=== PATIENT | female | born 1955 | race Caucasian/White ===

== ENCOUNTER 2017-08-29 07:25 | Day surgery (SDC) ==
[2015-11-09 11:22] VITALS: BMI 29.7
[2017-08-29] MEDS: TETRACAINE 0.5% UNIT-DOSE OP PRN ×2 (07:59→08:48)
[2017-08-29] MEDS: BETADINE OPTH PREP OP PRN ×2 (08:00→08:48)
[2017-08-29] MEDS: CYCLOGYL 2% OPTH OP PRN ×3 (08:01→08:11)
[2017-08-29] MEDS ORDERED: BSS WITH EPINEPHRINE OP ONE (08:04)
[2017-08-29] MEDS ORDERED: VERSED ONE (08:45)
[2017-08-29] MEDS ORDERED: SUBLIMAZE ONE (08:45)
[2017-08-29] MEDS ORDERED: LIDOCAINE 1%/PHENYLEPHRINE 1.5% BSS (SURGERY) INTRAOCULA ONE (08:53)
[2017-08-29] MEDS ORDERED: ZOFRAN 4 MG/2 ML IVP ONE (15:31)
[2017-08-29] MEDS ORDERED: NIRAVAM ODT (SURGERY) PO PRN (15:31)
[2017-08-29] MEDS ORDERED: DEX-MOXI-KETOR OPTH INJ 1/0.5/0.4 MG/ML IO ONE (15:31)
[2017-08-29] MEDS ORDERED: AK-DILATE 10% OPTH SOL OP PRN (15:31)
[2017-08-29] MEDS ORDERED: LIDOCAINE 1% 20 ML MDV ID STA (15:31)
[2017-08-29] MEDS ORDERED: BRIMONIDINE TARTRATE 0.2% OPTH SOL OP PRN (15:31)
[2017-08-29 16:16] VITALS: BP 112/67; TEMP 98.6
== END 2017-08-29 09:30 | disposition home or self-care (01) ==
LOC: SURG 07:25
PROVIDERS: ATTEND Ophthalmology
DX: H25.11 Age-related nuclear cataract, right eye (principal)

== ENCOUNTER 2017-09-26 07:33 | Day surgery (SDC) ==
[2015-11-09 11:22] VITALS: BMI 29.7
[2017-09-26] MEDS: TETRACAINE 0.5% UNIT-DOSE OP PRN ×2 (07:45→08:23)
[2017-09-26] MEDS: BETADINE OPTH PREP OP PRN ×2 (07:46→08:23)
[2017-09-26] MEDS: CYCLOGYL 2% OPTH OP PRN ×3 (07:47→07:57)
[2017-09-26 08:02] VITALS: TEMP 98.5
[2017-09-26] MEDS ORDERED: DEX-MOXI-KETOR OPTH INJ 1/0.5/0.4 MG/ML IO ONE (08:05)
[2017-09-26] MEDS ORDERED: LIDOCAINE 1%/PHENYLEPHRINE 1.5% BSS (SURGERY) INTRAOCULA ONE (08:05)
[2017-09-26] MEDS ORDERED: PRED FORTE 1% OPTH SOL OP ONE (08:05)
[2017-09-26] MEDS ORDERED: ZOFRAN 4 MG/2 ML IVP ONE (08:05)
[2017-09-26] MEDS ORDERED: BRIMONIDINE TARTRATE 0.2% OPTH SOL OP PRN (08:05)
[2017-09-26] MEDS ORDERED: AK-DILATE 10% OPTH SOL OP PRN (08:05)
[2017-09-26] MEDS ORDERED: NIRAVAM ODT (SURGERY) PO PRN (08:05)
[2017-09-26] MEDS ORDERED: BETADINE TP ONE (08:30)
[2017-09-26] MEDS ORDERED: DIPRIVAN 20 ML VIAL IVP ONE (08:30)
[2017-09-26] MEDS ORDERED: SUBLIMAZE ONE (08:30)
[2017-09-26] MEDS ORDERED: CYCLOGYL 2% OPTH OP ONE (08:30)
[2017-09-26] MEDS ORDERED: TETRACAINE 0.5% UNIT-DOSE OP ONE (08:30)
[2017-09-26] MEDS ORDERED: VERSED ONE (08:30)
[2017-09-26 08:55] VITALS: BP 107/60
[2017-09-26] MEDS ORDERED: BSS WITH EPINEPHRINE OP SCH (09:00)
[2017-09-27] MEDS ORDERED: TETRACAINE 0.5% UNIT-DOSE OP PRN (13:21)
[2017-09-27] MEDS ORDERED: BETADINE OPTH PREP OP PRN (13:21)
[2017-09-27] MEDS ORDERED: CYCLOGYL 2% OPTH OP PRN (13:21)
== END 2017-09-26 09:04 | disposition home or self-care (01) ==
LOC: SURG 07:33
PROVIDERS: ATTEND Ophthalmology
DX: H26.8 Other specified cataract (principal)

== ENCOUNTER 2019-02-06 13:00 | Outpatient (RCR) ==
[2015-11-09 11:22] VITALS: BMI 29.7
--- NOTE | 2019-01-24 09:34 | RS.OPPTEV2 ---
Date of Note: 01/23/19 Visit #: 1 Number of visits approved by Insurance: n/a Date of Evaluation: 01/23/19 Payer Source: Insurance Surgery Performed?: No Treatment Diagnosis: cervical pain with radiculopathy into LUSam, L shld pain History of Condition/Mechanism of Injury:: Pain began 08/2018, no definite injury noted. pt has see chiropractor in the past for this pain. 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 pt reports that one doctor thinks it is her shld, one thinks it is her neck. pt states that when she is lying down her 3rd, 4th, 5th digits with numbness/ tingling. Treatment Side (optional): N/A *Precautions: n/a Medical History Medical History: Hypertension, Arthritis Surgical History Comments:: cataract sx Smoking Status: Current every day smoker Diagnostic Testing/Imaging:: MRI cervical: degenerative changes in the lower neck but no disc herniation or spinal stenosis. There is left foraminal stenosis at C5-6. MRI L shld: possible mild rotator cuff impingement. Possible mild tendinosis in the supraspinatus tendon versus magic angle effect. no rotator cuff tear. Hx Home Medications: losartan, lexapro, xyzal, singular, xanax Patient's Goals: decrease pain in L UE. Pain Assessment - Pain Description Pain Location: reports pain in LUE shld to lat upper arm to below elbow Pain Description: Radiating, Aching Current Pain Intensity: 3/10 Worst Pain Intensity: 8/10 Functional Outcome Measure Neck Disability Index: 9 - G Codes & Severity Modifier G Codes & Modifier: n/a Source of G Code score: n/a Observation - Observation Inspection: pt demonstrates tightness in upper trap L worse than R. Posture: Forward Head, Rounded Shoulders, Increased Thoracic Kyphosis, Decreased Cervical Lordosis Handedness: Right Gait - Gait Pattern General Gait Pattern Observation: No Deviations/Normal General Range of Motion: RUE WFL's. LUE WFL's with pain with shld ROM. BLE WFL's Muscle Strength: RUE 5/5. BLE 5/5. LUE shld flex 4-/5 with pain, elbow flex/ ext 4/5 - ROM Cervical Spine Range of Motion Limitations: Soft Tissue Tightness, Muscle Weakness, Pain Comments: pt cervical ROM WFL's, no change in pain with cervical ROM. - Strength Cervical Extension: 4 Good Cervical Flexion: 4 Good Cervical Lateral Flexion: 4 Good Cervical Rotation: 4 Good - Special Tests Foraminal Distraction: Negative Foraminal Compression: Negative Left Thoracic Outlet Test: Negative Left (pt with + upper limb tension test) Shoulder ROM: Left WFL's Shoulder Muscle Strength: Right WFL's - Left Shoulder Strength Left Shoulder Flexion: 4- Good- Left Shoulder Extension: 4- Good- Left Shoulder Abduction: 4- Good- - Special Tests Shoulder Empty Can (Supraspinatus) Test: Positive Left Shoulder Yergason's Test: Negative Left Shoulder Speed's Sign Test: Negative Left Shoulder Drop Arm Test: Negative Left Shoulder Berrios-Wyatt Impingement Test: Negative Left Palpation Palpation Findings: Tenderness, Muscle Guarding Comments:: pt presents with tenderness in area of L supraspinatus as well as at AC joint. pt also with tightness and muscle guarding in the L upper trap Sensation - Sensation Right Upper Extremity: Intact/Normal Left Upper Extremity: Impaired (pt with radicular pain into LUE with n/t into L hand when lying down) Right Lower Extremity: Intact/Normal Left Lower Extremity: Intact/Normal Balance - Sitting Balance Static Sitting Balance: Normal Dynamic Sitting Balance: Normal - Standing Balance Static Standing Balance: Normal Dynamic Standing Balance: Normal - Heat/Cryotherapy Treatment: Hot Pack Comments:: cervical spine Interventions - Exercise/Activities/Manual Therapy Exercises/Activities: pt performed cervical retraction, scapular retraction, L upper trap stretch, upper limb neural tension median 1, ulnar 1 and corner stretch. Manual Therapy: n/a HOME EXERCISE PROGRAM: pt given written HEP including: cervical retraction, scapular retraction, L upper trap stretch, upper limb neural tension median 1, ulnar 1 and corner stretch. - Charges Timed Code Treatment Minutes: 49 Total Treatment Time: 58 Procedures billed for this date of service:: eval low, ex EVALUATION COMPLEXITY LEVEL EVALUATION COMPLEXITY LEVEL: HISTORY: Low, EXAM OF BODY SYSTEMS: Low, CLINICAL PRESENTATION: Low, CLINICAL DECISION MAKING: Low Assessment Assessment: pt presents with pain into LUE with decreased strength as well as postural deficits. pt presents with symptoms consistent with nerve impingement at level of C5-6, C6-7 with as noted by pain and n/t. pt does have + signs of mild supraspinatus involvment as well . Feel pt would benefit from skilled PT for therex for stretching, strengthening and neural glides as well as postural education. Feel pt may benefit from cervical traction and modalities to decrease pain and tightness. Patient Education: Home Exercise Program, Education of Plan of Care Rehab Potential: Good Short Term Goals Goal #1: pt independent with initial HEP Goal to be met by: 02/06/19 Goal #2: pt with decreased pain in LUE < 5/10 with activity Goal to be met by: 02/06/19 Goal #3: Improve strength LUE 4 to 4+/5 Goal to be met by: 02/06/19 Goal #4: Decreased tightness noted in L upper trap. Goal to be met by: 02/06/19 [facility] Goals Goal #1: pt able to perform normal work duties w/o radicular pain in LUE Goal to be met by: 02/21/19 Goal #2: pt able to sleep through the night without interruption from pain. Goal to be met by: 02/21/19 Goal #3: pt with - upper limb tension test Goal to be met by: 02/21/19 Plan - Treatment to be Provided Procedures: Therapeutic Exercises, Therapeutic Activity, Manual Therapy, Massage , Patient Education Modalities: Electrical Stimulation, Ultrasound/Phonophoresis, Class IV Laser, Cryotherapy, Hot Packs, Mechanical Traction - Treatment Plan Frequency: 2 X week Duration: 4 weeks Dates of General Duty Nurse Goals: 02/21/19 Expiration date of current Insurance Approval:: n/a - Treatment Code (1) Cervical pain Code(s): M54.2 - CERVICALGIA (2) Radicular pain in left arm Code(s): M79.2 - NEURALGIA AND NEURITIS, UNSPECIFIED (3) Left shoulder pain Code(s): M25.512 - PAIN IN LEFT SHOULDER Qualifiers: Chronicity: unspecified Qualified Code(s): M25.512 - Pain in left shoulder (4) Muscle tightness Code(s): M62.89 - OTHER SPECIFIED DISORDERS OF MUSCLE
--- NOTE | 2019-01-27 11:02 | RS.OPPTDN ---
Subjective Date of Note: 01/27/19 Visit #: 2 Number of visits approved by Insurance: n/a Date of Evaluation: 01/23/19 Payer Source: Insurance Treatment Diagnosis: cervical pain with radiculopathy into LUE, L shld pain Current Subjective/complaints:: pt states she has been practicing her HEP. States she is not having n/t into L hand this weekend. *Precautions: n/a Pain Assessment - Pain Description Pain Location: L UE into upper arm Pain Description: Radiating, Aching Current Pain Intensity: 2 - Heat/Cryotherapy Treatment: Hot Pack Comments:: cervical x 15mins prior to treatment - Traction Treatment Method: Mechanical Patient Position: Supine (with LE on bolster) Amount of Force Applied: 12# Hold Time: 30 secs Rest Time: 5 secs Duration of treatment: 15mins Traction Treatment Comment: 1 step up and down Interventions - Exercise/Activities/Manual Therapy Exercises/Activities: pt performed cervical retraction, scapular retraction with red theraband, as well as standing modified wall jaya stretch. pt also performed L upper trap stretch Total minutes of Exercise: 21 Manual Therapy: n/a HOME EXERCISE PROGRAM: pt given written HEP including: cervical retraction, scapular retraction, L upper trap stretch, upper limb neural tension median 1, ulnar 1 and corner stretch. 01/27/19 added scapular retraction with red tband with elbows flex and ext. - Charges Timed Code Treatment Minutes: 38 Total Treatment Time: 53 Procedures billed for this date of service:: mechanical traction, ex, hot pack Assessment: pt with decreased reports of radicular pain with no n/t in L hand reported. pt with less pain reported after mechanical traction. Patient Education: Home Exercise Program, Education of Plan of Care Patient demonstrates compliance with HEP?: Yes Short Term Goals Goal #1: pt independent with initial HEP Goal to be met by: 02/06/19 Progress towards Goal:: Progressing Goal #2: pt with decreased pain in LUE < 5/10 with activity Goal to be met by: 02/06/19 Progress towards Goal:: Met (not consistent) Goal #3: Improve strength LUE 4 to 4+/5 Goal to be met by: 02/06/19 Progress towards Goal:: Progressing Goal #4: Decreased tightness noted in L upper trap. Goal to be met by: 02/06/19 [employer] Goals Goal #1: pt able to perform normal work duties w/o radicular pain in LUE Goal to be met by: 02/21/19 Goal #2: pt able to sleep through the night without interruption from pain. Goal to be met by: 02/21/19 Goal #3: pt with - upper limb tension test Goal to be met by: 02/21/19 Plan Dates of [employer] Goals: 02/21/19 Expiration date of current Insurance Approval:: n/a PLAN: plan to eval effectiveness of cervical traction as well as stretching, strengthening to improve functional mobility with less pain.
--- NOTE | 2019-01-30 15:35 | RS.OPPTDN ---
Subjective Date of Note: 01/30/19 Visit #: 3 Number of visits approved by Insurance: n/a Date of Evaluation: 01/23/19 Payer Source: Insurance Treatment Diagnosis: cervical pain with radiculopathy into LUE, L shld pain Current Subjective/complaints:: pt states that she feels like the traction helped last time. States she has been practicing the ex at home. *Precautions: n/a Pain Assessment - Pain Description Pain Location: LUE, upper trap Pain Description: Tightness, Radiating Current Pain Intensity: 2 - Treatment Modality: Ultrasound Parameters/Method Applied: 1.5w/cm2 x 8 mins Treatment Area: L upper trap Patient Position: Sitting - Heat/Cryotherapy Treatment: Hot Pack Comments:: (prior to ex and traction) cervical spine x 15 mins - Traction Treatment Method: Mechanical, Intermittent, Cervical Patient Position: Supine (with knees on bolster) Amount of Force Applied: 14# Hold Time: 30 seconds Rest Time: 5 seconds Duration of treatment: 15 mins Interventions - Exercise/Activities/Manual Therapy Exercises/Activities: pt performed cervical retraction, scapular retraction with elbows flex and elbows ext with red theraband, instructed pt on self trigger point release with tennis ball. Total minutes of Exercise: 9 Manual Therapy: n/a HOME EXERCISE PROGRAM: pt given written HEP including: cervical retraction, scapular retraction, L upper trap stretch, upper limb neural tension median 1, ulnar 1 and corner stretch. 01/27/19 added scapular retraction with red tband with elbows flex and ext. - Charges Timed Code Treatment Minutes: 38 Total Treatment Time: 59 Procedures billed for this date of service:: mechanical traction, hp, ultrasound Assessment: pt improving with decreased pain in LUE as well as improved flexibility. pt without n/t into L hand continues with pain in L upper arm. pt has met STG 1, 2. Progressing toward remaining goals. Patient Education: Home Exercise Program, Education of Plan of Care Patient demonstrates compliance with HEP?: Yes Short Term Goals Goal #1: pt independent with initial HEP Goal to be met by: 02/06/19 Progress towards Goal:: Met Goal #2: pt with decreased pain in LUE < 5/10 with activity Goal to be met by: 02/06/19 Progress towards Goal:: Met (not consistent) Goal #3: Improve strength LUE 4 to 4+/5 Goal to be met by: 02/06/19 Progress towards Goal:: Progressing Goal #4: Decreased tightness noted in L upper trap. Goal to be met by: 02/06/19 Progress towards Goal:: Progressing [facility] Goals Goal #1: pt able to perform normal work duties w/o radicular pain in LUE Goal to be met by: 02/21/19 Goal #2: pt able to sleep through the night without interruption from pain. Goal to be met by: 02/21/19 Progress towards goal: Progressing Goal #3: pt with - upper limb tension test Goal to be met by: 02/21/19 Plan Dates of [employer] Goals: 02/21/19 Expiration date of current Insurance Approval:: n/a PLAN: plan to continue with traction as well as modalities to decrease pain and muscle tightness.
--- NOTE | 2019-02-04 13:09 | RS.OPPTDN ---
Subjective Date of Note: 02/04/19 Visit #: 4 Number of visits approved by Insurance: n/a Date of Evaluation: 01/23/19 Payer Source: Insurance Treatment Diagnosis: cervical pain with radiculopathy into LUE, L shld pain Current Subjective/complaints:: pt states that she is feeling better. pt reports decreased pain in LUE. pt states she has been dealing with congestion/ cough lately and is on steroid and antibiotic. *Precautions: n/a Pain Assessment - Pain Description Pain Location: LUE Pain Description: Radiating Current Pain Intensity: 2 - Treatment Modality: Ultrasound Parameters/Method Applied: 1.5w/cm2 x 8 mins Treatment Area: L upper trap Patient Position: Sitting - Heat/Cryotherapy Treatment: Hot Pack Comments:: cervical spine - Traction Treatment Method: Mechanical, Cervical Patient Position: Supine (with LE on bolster) Amount of Force Applied: 15# Hold Time: 30 secs Rest Time: 5 secs Duration of treatment: 15mins Interventions - Exercise/Activities/Manual Therapy Exercises/Activities: pt reports performing HEP 1-2 x a day. pt with trigger point noted in L upper trap. pt instructed on median nerve glide 2 and ulnar nerve glide 2 and pt demonstrated understanding. Total minutes of Exercise: 8 Manual Therapy: n/a HOME EXERCISE PROGRAM: pt given written HEP including: cervical retraction, scapular retraction, L upper trap stretch, upper limb neural tension median 1, ulnar 1 and corner stretch. 01/27/19 added scapular retraction with red tband with elbows flex and ext. 02/04/19 added median nerve glide 2 and ulnar nerve glide 2 - Charges Timed Code Treatment Minutes: 31 Total Treatment Time: 50 Procedures billed for this date of service:: mechanical traction, ultrasound, hot pack Assessment: pt progressing with decreased pain as well as increased independence with HEP . pt has met STG 1, 2, 3 and progressing well toward remaining goals Patient Education: Home Exercise Program, Education of Plan of Care Patient demonstrates compliance with HEP?: Yes Short Term Goals Goal #1: pt independent with initial HEP Goal to be met by: 02/06/19 Progress towards Goal:: Met Goal #2: pt with decreased pain in LUE < 5/10 with activity Goal to be met by: 02/06/19 Progress towards Goal:: Met (not consistent) Goal #3: Improve strength LUE 4 to 4+/5 Goal to be met by: 02/06/19 Progress towards Goal:: Met Goal #4: Decreased tightness noted in L upper trap. Goal to be met by: 02/06/19 Progress towards Goal:: Progressing [facility] Goals Goal #1: pt able to perform normal work duties w/o radicular pain in LUE Goal to be met by: 02/21/19 Progress towards goal: Progressing Goal #2: pt able to sleep through the night without interruption from pain. Goal to be met by: 02/21/19 Progress towards goal: Progressing Goal #3: pt with - upper limb tension test Goal to be met by: 02/21/19 Progress towards goal: Progressing Plan Dates of [facility] Goals: 02/21/19 Expiration date of current Insurance Approval:: n/a PLAN: plan to progress with traction as well as stretching and strengthening.
--- NOTE | 2019-02-06 14:07 | RS.OPPTDN ---
Subjective Date of Note: 02/06/19 Visit #: 5 Number of visits approved by Insurance: n/a Date of Evaluation: 01/23/19 Payer Source: Insurance Treatment Diagnosis: cervical pain with radiculopathy into LUE, L shld pain Current Subjective/complaints:: pt states that she is doing better. States she no longer has any symptoms below the elbow. States she still feels that her L UE is weaker than R. *Precautions: n/a Pain Assessment - Pain Description Pain Location: L upper arm Pain Description: Tightness, Aching Current Pain Intensity: 1-2 - Treatment Modality: Ultrasound Parameters/Method Applied: 1.5w/cm2 x 8 mins Treatment Area: L upper trap Patient Position: Sitting - Heat/Cryotherapy Treatment: Hot Pack Comments:: prior to u/s and traction - Traction Treatment Method: Mechanical, Intermittent, Cervical Patient Position: Supine Amount of Force Applied: 15# Hold Time: 30sec Rest Time: 5 sec Duration of treatment: 15 mins Interventions - Exercise/Activities/Manual Therapy Exercises/Activities: pt reports she is continueing to perform HEP routinely. pt demonstrates cervical ROM WFL's. Manual Therapy: n/a HOME EXERCISE PROGRAM: pt given written HEP including: cervical retraction, scapular retraction, L upper trap stretch, upper limb neural tension median 1, ulnar 1 and corner stretch. 01/27/19 added scapular retraction with red tband with elbows flex and ext. 02/04/19 added median nerve glide 2 and ulnar nerve glide 2 - Charges Timed Code Treatment Minutes: 20 Total Treatment Time: 52 Procedures billed for this date of service:: mechanical traction, ultrasound, hot pack Assessment: pt with decreased pain in LUE as well as decreased upper trap tightness. Patient Education: Home Exercise Program, Education of Plan of Care Patient demonstrates compliance with HEP?: Yes Short Term Goals Goal #1: pt independent with initial HEP Goal to be met by: 02/06/19 Progress towards Goal:: Met Goal #2: pt with decreased pain in LUE < 5/10 with activity Goal to be met by: 02/06/19 Progress towards Goal:: Met (not consistent) Goal #3: Improve strength LUE 4 to 4+/5 Goal to be met by: 02/06/19 Progress towards Goal:: Met Goal #4: Decreased tightness noted in L upper trap. Goal to be met by: 02/06/19 Progress towards Goal:: Met [employer] Goals Goal #1: pt able to perform normal work duties w/o radicular pain in LUE Goal to be met by: 02/21/19 Progress towards goal: Progressing Goal #2: pt able to sleep through the night without interruption from pain. Goal to be met by: 02/21/19 Progress towards goal: Progressing Goal #3: pt with - upper limb tension test Goal to be met by: 02/21/19 Progress towards goal: Progressing Plan Dates of Alf Goals: 02/21/19 Expiration date of current Insurance Approval:: n/a PLAN: plan to work on strengthening LUE next visit with progress with traction and modalities as needed.
== END 2019-02-08 23:59 | disposition short-term general hospital (02) ==
PROVIDERS: ATTEND Orthopaedic Surgery
DX: M54.2 Cervicalgia (principal); M25.512 Pain in left shoulder; M79.2 Neuralgia and neuritis, unspecified; M62.89 Other specified disorders of muscle